=== PATIENT | female | born 1980 | race Caucasian/White ===

== ENCOUNTER 2017-01-27 10:53 | Emergency (ER) | payer OTHER ==
[~2017-01-27] VITALS: Ht 152.4 cm; Wt 48.0 kg
[2017-01-27 10:55] VITALS: BP 115/79; PULSE 112; RESP 16; TEMP 98; O2SAT 99
[2017-01-27] MEDS ORDERED: SODIUM CHLOR 0.9% 1000 ML INJ 1,000 ML IV SCH (11:16)
[2017-01-27] MEDS ORDERED: KETOROLAC TROMETHAMINE 30 MG/ML (IVP) VIAL IVP ONE (11:30)
[2017-01-27 12:06] LABS: AUTOMATED NEUTROPHIL # 2.7 TH/MM3 (1.8-7.7); BASOPHIL % 0.6 % (0.0-2.0); EOSINOPHIL # 0.2 TH/MM3 (0-0.4); EOSINOPHIL % 3.1 % (0.0-4.0); HEMATOCRIT 40.2 % (35.0-46.0); HEMO FLAGS DIFF FINAL; LYMPH % 38.2 % (9.0-44.0); LYMPHOCYTE # 2.1 TH/MM3 (1.0-4.8); MEAN CELL VOLUME 95.1 FL (80.0-100.0); MEAN CORPUSCULAR HEMOGLOBIN 32.8 PG (27.0-34.0); MEAN CORPUSCULAR HGB CONC 34.5 % (32.0-36.0); MONO % 7.8 % (0.0-8.0); NEUT % 50.3 % (16.0-70.0); PLATELET COUNT 215 TH/MM3 (150-450); RED BLOOD COUNT 4.23 MIL/MM3 (4.00-5.30); RED CELL DISTRIBUTION WIDTH 13.8 % (11.6-17.2); WHITE BLOOD COUNT 5.4 TH/MM3 (4.0-11.0)
--- NOTE | 2017-01-27 12:09 | PD ---
HPI Chief Complaint: Abdominal Pain Time Seen by Provider: 12:03 Travel History International Travel<30 days: No Contact w/Intl Traveler<30days: No Traveled to known affect area: No History of Present Illness HPI 36-year-old female that presents to the ED for evaluation of lower abdominal pain. Per patient she's had right lower quadrant pain for about 2-3 weeks that started around her last period. Per patient her menses started and ended on the January 04. Per patient since then she's been having this nonspecific pain. Per patient he comes and goes. Per patient is 4 out of 10. Denies any discharge. Per patient the bleeding was only temporary and only lasted about one day. She denies any fevers chills or sweats. She does state having some nausea. Denies possibility of secondary to having a fallopian tube ligation about almost 10 years ago. She denies any other surgeries. She denies any bowel movement or urinary issues. She denies any possibility of STDs. Allergies to Keflex, penicillin, stadol. Pain does not radiate. Denies any chest pain or shortness of breath. No other abdominal pain. Patient came here today because the pain has not improved and seems to becoming more severe. PFSH Past Medical History Hx Anticoagulant Therapy: No Cardiovascular Problems: No Chemotherapy: No Cerebrovascular Accident: No Diabetes: No Respiratory: No ?: Not LMP: 01/04/17 Social History Alcohol Use: No Tobacco Use: Yes (11/06 ppd) Substance Use: No Allergies-Medications (Allergen,Severity, Reaction): Coded Allergies: Keflex (Verified Allergy, Severe, Itching, 01/27/17) Penicillin (Verified Allergy, Severe, Itching, 01/27/17) Stadol (Verified Allergy, Severe, Hallucinations, 01/27/17) Reported Meds & Prescriptions Reported Meds & Active Scripts Active Diclofenac Sodium DR (Diclofenac Sodium) 75 Mg Tabdr 75 Mg PO BID PRN Review of Systems General / Constitutional: No: Fever, Chills, Weight Gain, Weight Loss, Other Eyes: No: Diploplia, Blurred Vision, Photophobia, Drainage, Redness, Foreign Body Sensation, Pain, Tearing, Blind Spots, Visual changes, Blindness, Other HENT: No: Headaches, Vertigo, Lightheadedness, Sore Throat, Rhinitis, Rhinorrhea, Congestion, Nosebleed, Neck Stiffness, Neck Pain, Masses, Gingival Bleeding, Dental Difficulties, Ear Discharge, Earache, Other Cardiovascular: No: Chest Pain or Discomfort, Palpitations, Irregular Rhythm, Tachycardia, Diaphoresis, Syncope, Dyspnea on exertion, Varicosities, Edema, Cyanosis, Varicosities, Phlebitis, Claudication, Other Respiratory: No: Cough, Shortness of Breath, Wheezing, Sneezing, Orthopnea, Hemoptysis, Stridor, Night Sweats, Pleuritic Pain, Other Gastrointestinal: Positive: Nausea, Abdominal Pain, No: Vomiting, Diarrhea, Hematemesis, Hematochezia, Constipation, Changes in Bowel Habits, Indigestion, Dysphagia, Loss of Appetite, Other Genitourinary: Positive: Pelvic Pain, No: Urgency, Frequency, Dysuria, Nocturia, Hematuria, Decreased Urinary Output, Oliguria, Hesitancy, Dribbling, Incontinence, Flank Pain, Dyspareunia, Discharge, Dysmenorrhea, Menorrhagia, Metorrhagia, Vaginal Bleeding, Other Musculoskeletal: No: Myalgias, Arthralgias, Limited ROM, Weakness, Cramping, Edema, Pain, Atrophy, Other Skin: No Rash, No Itching, No Dryness, No Lumps, No Hives, No Change in Pigmentation, No Change in nails, No Alopecia, No Lesions, No Breast Lumps, No Breast Tenderness, No Breast Swelling, No Other Neurologic: No: Weakness, Dizziness, Syncope, Focal Abnormalities, Coordination Problem, Tremor, Ataxia, Headache, Change in Mentation, Slurred Speech, Paresthesia, Incontinence, Seizures, Sensory Disturbance, Other Psychiatric: No: Anxiety, Depression, Suicidal Ideations, Disorder of Thought, Mood Disorder, Substance Abuse, Homicidal Ideation, Other Endocrine: No: Heat Intolerance, Cold Intolerance, Polyuria, Polydipsia, Other Hematologic/Lymphatic: No: Easy Bruising, Lymph Node Enlargement, Other Physical Exam Narrative GENERAL: SKIN: Warm and dry. HEAD: Atraumatic. Normocephalic. EYES: Pupils equal and round. No scleral icterus. No injection or drainage. ENT: No nasal bleeding or discharge. Mucous membranes pink and moist. Tongue is midline. No uvula deviation. NECK: Trachea midline. No JVD. CARDIOVASCULAR: Regular rate and rhythm. No murmurs, S3, S4. RESPIRATORY: No accessory muscle use. Clear to auscultation. Breath sounds equal bilaterally. GASTROINTESTINAL: Abdomen soft, non-tender, nondistended. Hepatic and splenic margins not palpable. Genital exam: Done with female nurse present. Patient has no obvious lymphadenopathy or mass on the area of pain. Patient's pain is mostly on the pelvic area on the right side. No obvious mass or deformity noted in this area. Patient does have some erythema and irritation of the vaginal wall but no sign of infection. Some whitish discharge noted but appears to be more normal than infectious. No cervical motion tenderness. No other deformity noted. No adnexal tenderness or mass noted. MUSCULOSKELETAL: Extremities without clubbing, cyanosis, or edema. No obvious deformities. Full range of motion of the upper and lower extremities bilaterally. 2+ pulses bilaterally. NEUROLOGICAL: Awake and alert. No obvious cranial nerve deficits. Motor grossly within normal limits. Five out of 5 muscle strength in the arms and legs. Normal speech. PSYCHIATRIC: Appropriate mood and affect; insight and judgment normal. Data Data Last Documented VS Vital Signs Date Time Temp Pulse Resp B/P Pulse Ox O2 Delivery O2 Flow Rate FiO2 01/27/17 10:55 98.0 112 16 115/79 99 Room Air Orders Complete Blood Count With Diff (01/27/17 11:16) Comprehensive Metabolic Panel (01/27/17 11:16) Lactic Acid (01/27/17 11:16) Urinalysis - C+S If Indicated (01/27/17 11:16) Iv Access Insert/Monitor (01/27/17 11:16) Sodium Chlor 0.9% 1000 Ml Inj (Ns 1000 M (01/27/17 11:16) Ketorolac Inj (Toradol Inj) (01/27/17 11:30) Gc And Chlamydia Pcr (01/27/17 11:16) Wet Prep Profile (01/27/17 11:16) Ed Urine Pregnancytest Poc (01/27/17 11:16) Us Pelvis Comp Rn Nursery/Non-Preg (01/27/17 ) Ketorolac Inj (Toradol Inj) (01/27/17 12:30) Labs Laboratory Tests Test 01/27/17 01/27/17 01/27/17 11:00 11:50 12:00 White Blood Count 5.4 TH/MM3 Red Blood Count 4.23 MIL/MM3 Hemoglobin 13.9 GM/DL Hematocrit 40.2 % Mean Corpuscular Volume 95.1 FL Mean Corpuscular Hemoglobin 32.8 PG Mean Corpuscular Hemoglobin 34.5 % Concent Red Cell Distribution Width 13.8 % Platelet Count 215 TH/MM3 Mean Platelet Volume 10.2 FL Neutrophils (%) (Auto) 50.3 % Lymphocytes (%) (Auto) 38.2 % Monocytes (%) (Auto) 7.8 % Eosinophils (%) (Auto) 3.1 % Basophils (%) (Auto) 0.6 % Neutrophils # (Auto) 2.7 TH/MM3 Lymphocytes # (Auto) 2.1 TH/MM3 Monocytes # (Auto) 0.4 TH/MM3 Eosinophils # (Auto) 0.2 TH/MM3 Basophils # (Auto) 0.0 TH/MM3 CBC Comment DIFF FINAL Differential Comment Sodium Level 139 MEQ/L Potassium Level 3.8 MEQ/L Chloride Level 105 MEQ/L Carbon Dioxide Level 29.0 MEQ/L Anion Gap 5 MEQ/L Blood Urea Nitrogen 6 MG/DL Creatinine 0.61 MG/DL Estimat Glomerular Filtration 112 ML/MIN Rate Random Glucose 90 MG/DL Lactic Acid Level 0.8 mmol/L Calcium Level 8.8 MG/DL Total Bilirubin 0.2 MG/DL Aspartate Amino Transf 9 U/L (AST/SGOT) Alanine Aminotransferase 13 U/L (ALT/SGPT) Alkaline Phosphatase 82 U/L Total Protein 7.2 GM/DL Albumin 3.7 GM/DL Urine Color LIGHT-YELLOW Urine Turbidity HAZY Urine pH 6.0 Urine Specific [place] 1.004 Urine Protein NEG mg/dL Urine Glucose (UA) NEG mg/dL Urine Ketones NEG mg/dL Urine Occult Blood NEG Urine Nitrite NEG Urine Bilirubin NEG Urine Urobilinogen LESS THAN 2.0 MG/DL Urine Leukocyte Esterase NEG Urine RBC 2 /hpf Urine WBC 1 /hpf Urine Squamous Epithelial 20 /hpf Cells Urine Bacteria FEW /hpf Microscopic Urinalysis Comment CULT NOT INDICATED Clue Cells (Wet Prep) NONE SEEN Vaginal Trichomonas (Wet Prep) NONE SEEN Vaginal Yeast (Wet Prep) NONE SEEN Chlamydia trachomatis DNA NOT DETECTED (PCR) Neisseria gonorrhoeae DNA NOT DETECTED (PCR) MDM Medical Decision Making Medical Screen Exam Complete: Yes Emergency Medical Condition: Yes Medical Record Reviewed: Yes Interpretation(s) CBC & BMP Diagram 01/27/17 11:00 wet prep and gc and chlamydia negative UA negative Last Impressions Pelvis Ultrasound 01/27/17 0000 Signed Impressions: Service Date/Time: Friday, January 27, 2017 13:31 - CONCLUSION: Exam is remarkable only for a rounded avascular structure identified within the anterior wall of the vagina which may reflect a obstructed duct. Dulce Dean MD Differential Diagnosis Ovarian mass versus pelvic pain versus bacterial vaginosis versus yeast infection versus cystitis versus normal exam Narrative Course 36-year-old female that presents to the ED for evaluation of lower abdominal pain. Patient was properly examined and was found to have signs and symptoms were consistent with appears to be pelvic pain. I do not believe this is any sort of appendicitis is most of her pain is on the pelvic region and no where near the right lower quadrant. Her exam is benign at this time. Patient does have some irritation of the vaginal wall with some discharge which appears to be normal. At this time I do recommend labs and ultrasound. Patient is ago with this plan. test was negative. Labs and imaging showed unremarkable. Ultrasound did show possible Dr. obstruction from possible Bartholin cyst. On my examination I did not see any sign of Bartholin cyst. Patient was not really tender at all in the area of this area. I recommend at this time anti-inflammatories. Follow-up with [facility]. See ED worsening symptoms. Diagnosis Primary Impression: Pelvic pain Patient Instructions: General Instructions Additional Instructions: F/u with [facility]. See ED if worsening symptoms. Take meds as prescribed. Your US did showed possible bartholin cyst or duct occlusion. F/u with [facility] if this continues to be a problem. Med/Other Pt SpecificInfo: Prescription(s) given Scripts Diclofenac Sodium DR 75 Mg Tabdr75 Mg PO BID PRN (PAIN SCALE 1 TO 10) #20 TAB Prov:Ajit Blanchard MD 01/27/17 Disposition: DISCHARGE HOME Condition: Stable Skyler Cuevas Jan 27, 2017 12:09
[2017-01-27 12:17] LABS: BACTERIA, URINE FEW /hpf; BLOOD, URINE NEG (NEG); GLUCOSE,URINE NEG (NEG); KETONE, URINE NEG (NEG); NITRITE,URINE NEG (NEG); SQUAMOUS EPITHELIAL CELL URINE 20 /hpf (0-5); URINE COLOR LIGHT-YELLOW (YELLW/STRAW)
[2017-01-27 12:18] LABS: COMMENT (UR) CULT NOT INDICATED; CULTURE IF INDICATED CULT NOT INDICATED
[2017-01-27 12:22] LABS: ANION GAP 5 MEQ/L (5-15); AST (GOT) 9 U/L (15-37); BLOOD UREA NITROGEN 6 MG/DL (7-18); CHLORIDE 105 MEQ/L (98-107); GLOMERULAR FILTRATION RATE 112 ML/MIN (>89); POTASSIUM 3.8 MEQ/L (3.5-5.1); SODIUM (NA) 139 MEQ/L (136-145)
[2017-01-27 12:25] LABS: ALKALINE PHOSPHATASE 82 U/L (45-117); ALT (GPT) 13 U/L (10-53); TOTAL BILIRUBIN ADULT 0.2 MG/DL (0.2-1.0)
[2017-01-27] MEDS ORDERED: KETOROLAC TROMETHAMINE 30 MG/ML (IVP) VIAL IV PUSH ONE (12:30)
[2017-01-27 14:02] LABS: CHLAMYDIA PCR NOT DETECTED (NOT DETECT); NEISSERIA PCR NOT DETECTED (NOT DETECT)
[2017-01-27] MEDS ORDERED: DICL75TA PO (14:35)
--- NOTE | 2017-01-27 14:59 | RADRPT ---
EXAM DATE/TIME: 01/27/2017 13:31 [facility] COMPARISON: No previous studies available for comparison. INDICATIONS : Pelvic pain. MEDICAL HISTORY : . Pelvic pain. SURGICAL HISTORY : Tubal ligation. ENCOUNTER: Initial ACUITY: 2 days PAIN SCORE: 7/10 LOCATION: Bilateral pelvis MEASUREMENTS: UTERUS: 8.0 x 7.4 x 4.3 cm ENDOMETRIAL STRIPE: 10 mm RIGHT OVARY: 3.0 x 2.8 x 1.8 cm LEFT OVARY: 2.5 x 2.7 x 2.0 cm FINDINGS: UTERUS: Normal in morphology and echogenicity. There is a rounded area of decreased echogenicity involving the anterior wall of the vagina with no perceptible internal blood flow. This may reflect t he presence of a Bartholin duct cyst. RIGHT OVARY: Ovary contains no mass or significant cystic lesion. LEFT OVARY: Ovary contains no mass or significant cystic lesion. Normal corpus luteum seen withi n the left ovary. MISCELLANEOUS: Trace physiologic free fluid. CONCLUSION: Exam is remarkable only for a rounded avascular structure identified within the anter ior wall of the vagina which may reflect a obstructed duct. Dulce Dean MD on January 27, 2017 at 14:54 Board Certified Radiologist. This report was verified electronically.
[2017-01-27 15:30] VITALS: BP 110/66; PULSE 95; RESP 14; O2SAT 98
== END 2017-01-27 15:30 | disposition home or self-care (01) ==
LOC: NEPE 10:53
DX: R10.2 Pelvic and perineal pain (principal); F17.210 Nicotine dependence, cigarettes, uncomplicated
CPT/HCPCS: 76856; 80053; 81001; 83605; 84703; 85025; 87210; 87491; 87591; 96361; 96374; 99284; J1885; J7030